=== PATIENT | male | born 1960 | race Asian ===

== ENCOUNTER 2016-08-30 10:06 | Emergency (ER) | payer BC ==
[~2016-08-30] VITALS: Ht 180.3 cm; Wt 97.5 kg
[~2016-08-30 10:06] MED LIST: ASA LOW STR81 MG PO; CIPRO500 MG OR; CYCL10TA35 PO; HYZAAR1 TA1 PO; MELOXICAM7.5 MG OR; TRAM50TA PO
[2016-08-30 10:48] LABS: PLATELET COUNT 348 K/uL (142-355)
[2016-08-30 10:53] LABS: POTASSIUM 3.3 mmol/L (3.6-5.2); SODIUM 138 mmol/L (136-145)
== END 2016-08-30 11:00 | disposition home or self-care (01) ==
LOC: ED 10:06
DX: I10 Essential (primary) hypertension (principal); H61.21 Impacted cerumen, right ear
CPT/HCPCS: 36415; 80053; 85027; 99283